=== PATIENT | male | born 1965 | race Caucasian/White ===

== ENCOUNTER 2019-02-02 19:41 | Emergency (ER) | payer MEDICAID ==
[~2019-02-02] VITALS: Ht 182.9 cm; Wt 77.1 kg
[~2019-02-02 19:41] MED LIST: HYDACE5 PO; RXCLIN PO; SULTRIDS PO
[2019-02-02 20:46] LABS: BASOPHILS ABSOLUTE AUTO 0.08 K/mm3 (0.00-0.23); BASOPHILS PERCENT AUTO 1 % (0-2); EOSINOPHILS ABSOLUTE AUTO 0.08 K/mm3 (0.00-0.68); EOSINOPHILS PERCENT AUTO 1 % (0-6); Hematocrit 45.6 % (37.0-53.0); Hemoglobin 15.9 g/dL (13.5-17.5); IMMATURE GRAN ABSOLUTE AUTO 0.02 K/mm3 (0.00-0.10); IMMATURE GRAN PERCENT AUTO 0 % (0-1); LYMPHOCYTES ABSOLUTE AUTO 3.28 K/mm3 (0.84-5.20); LYMPHOCYTES PERCENT AUTO 39 % (21-46); MONOCYTES ABSOLUTE AUTO 0.76 K/mm3 (0.16-1.47); MONOCYTES PERCENT AUTO 9 % (4-13); Mean Corpuscular HGB 32.3 pg (26.0-34.0); Mean Corpuscular HGB Conc 34.9 g/dL (31.5-36.5); Mean Corpuscular Volume 93 fL (80-100); Mean Platelet Volume 10.2 fL (9.1-12.4); NEUTROPHILS ABSOLUTE AUTO 4.17 K/mm3 (1.96-9.15); NEUTROPHILS PERCENT AUTO 50 % (41-73); Platelet Count 277 K/mm3 (150-400); RDW Coefficient Variation 12.5 % (11.7-14.2); RDW Standard Deviation 42.8 fL (35.1-46.3); Red Blood Cell Count 4.92 M/mm3 (4.30-5.90); White Blood Cell Count 8.39 K/mm3 (4.00-11.30)
[2019-02-02 21:06] LABS: Alanine Aminotransfer (ALT/SGP 96 U/L (12-78); Albumin, Blood 4.1 g/dL (3.4-5.0); Albumin/Globulin Ratio 1.2 (0.8-1.8); Alk Phos 95 U/L (50-136); Anion Gap 9 mmol/L (6-16); Aspartate Aminotrans (AST/SGOT 154 U/L (12-37); Bilirubin, Total 0.4 mg/dL (0.1-1.0); Blood Urea Nitrogen 6 mg/dL (8-24); Bun/Creatinine Ratio 9.4 (12.0-20.0); CO2, Blood 24 mmol/L (21-32); Calcium, Blood 8.9 mg/dL (8.5-10.1); Chloride, Blood 103 mmol/L (98-108); Creatinine, Blood 0.64 mg/dL (0.60-1.20); Ethanol (Alcohol), Blood, Med 203 mg/dL; Globulin, Blood 3.5 g/dL (2.2-4.0); Glomerular Filtration Rate >60 (60-); Glucose, Blood 161 mg/dL (70-99); Potassium, Blood 3.9 mmol/L (3.5-5.5); Sodium, Blood 136 mmol/L (136-145); Total Protein, Blood 7.6 g/dL (6.4-8.2); Troponin I <0.015 ng/mL (0.000-0.040)
== END 2019-02-02 22:48 | disposition home or self-care (01) ==
LOC: ER 19:41
PROVIDERS: Emergency Medicine
DX: K70.9 Alcoholic liver disease, unspecified (principal); F10.10 Alcohol abuse, uncomplicated; Y90.7 Blood alcohol level of 200-239 mg/100 ml; R07.9 Chest pain, unspecified; J98.01 Acute bronchospasm; F17.210 Nicotine dependence, cigarettes, uncomplicated; Z88.0 Allergy status to penicillin
CPT/HCPCS: 36415; 71046; 80053; 83690; 84484; 85025; 93005; 93010; 99285-25; G0480

== ENCOUNTER 2024-10-28 11:11 | Day surgery (SDC) | payer OTHER ==
[~2024-10-28] VITALS: Ht 180.3 cm; Wt 76.7 kg
[2024-10-28] VITALS (19 sets, daily range): BP systolic 104–143; BP diastolic 56–96
[~2024-10-28 11:11] MED LIST changes: +Acetaminophen 500 MG Tab PO SCH; +CeFAZolin Sodium 2,000 MG in NS 100 ML IV SCH; +Chlorhexidine Mouth Care 15 ML UDC MT SCH; +IBUP800 PO; +Lactated Ringer's 1,000 ML IV SCH; +OxyCODONE HCL 10 MG TABCR PO SCH; +Ropivacaine 0.5% HCl/Pf 123.125 MG,EPINEPHrine HCL 0.25 MG,Ketorolac Tromethamine 15 MG... INFIL SCH; +SERT25 PO; +Tranexamic Acid 100 ML IV SCH; +Vancomycin HCL 1,000 MG in NS 250 ML IV SCH
[2024-10-28] MEDS ORDERED: albuterol sulfate HF (11:47)
[2024-10-28] MEDS ORDERED: albuterol sulfate HF INH (11:47)
[2024-10-28] MEDS ORDERED: CeFAZolin Sodium 2,000 MG VIAL ONE (12:03)
--- NOTE | 2024-10-28 12:15 | NUR ---
Ambulatory in Day SurgeryPre-Op teaching done. Pt verbalizes understanding. History, Chart, Medications and Allergies reviewed before start of procedure.Patient confirms NPO status and agrees with scheduled surgery. Patient reports completing Chlorhexadine shower X2 prior to admission to hospital.
[2024-10-28] MEDS ORDERED: Promethazine HCl 25 MG Tab PO PRN (12:35)
[2024-10-28] MEDS ORDERED: Bisacodyl 10 MG Supp PR PRN (12:40)
[2024-10-28] MEDS ORDERED: DiphenhydrAMINE HCL 25 MG Cap PO PRN (12:40)
[2024-10-28] MEDS ORDERED: FLU VACC TS2024-25(6MOS UP)/PF 45 MCG/0.5 ML SYRINGE IM PRN (12:40)
[2024-10-28] MEDS ORDERED: Ondansetron HCl 2 MG / ML 2ML Vial IV PRN ×2 (12:45→13:45)
[2024-10-28] MEDS ORDERED: Lactated Ringer's 1,000 ML IV SCH (12:45)
[2024-10-28] MEDS ORDERED: propofoL 100 ML IV ONE (12:45)
[2024-10-28] MEDS ORDERED: Magnesium Hydroxide Conc 10 ML UDC PO PRN (12:45)
[2024-10-28] MEDS ORDERED: Metoclopramide HCl 5MG / ML 2ML Vial IV PRN (12:45)
[2024-10-28] MEDS ORDERED: HYDROmorphone HCl/Pf 1MG SYR IV PRN (12:45)
[2024-10-28] MEDS ORDERED: OxyCODONE HCL 5 MG TAB PO PRN ×2 (12:50)
[2024-10-28] MEDS ORDERED: FentaNYL Citrate 50 MCG/ML 2 ML Injection ONE (13:04)
[2024-10-28] MEDS ORDERED: Midazolam HCl 1MG / ML 2ML Vial ONE (13:04)
[2024-10-28] MEDS ORDERED: Albuterol HFA200 ACT/6.7 GM INH INH PRN (13:05)
[2024-10-28] MEDS ORDERED: Phenylephrine HCl 100 MCG/ML-NS 10MLSYR (1MG/10ML) ONE ×2 (13:24→14:15)
[2024-10-28] MEDS ORDERED: Vancomycin HCl 1000 MG ADDvantage ONE (13:39)
[2024-10-28] MEDS ORDERED: Dexamethasone Sod Phos 10 MG/ML 1ML VIAL ONE (13:41)
[2024-10-28] MEDS ORDERED: propofoL 20 ML IV ONE ×2 (14:50→15:22)
[2024-10-28] MEDS ORDERED: Ondansetron HCl 2 MG / ML 2ML Vial ONE (15:41)
[2024-10-28] MEDS ORDERED: Acetaminophen 500 MG Tab PO SCH (16:00)
--- NOTE | 2024-10-28 17:00 | NUR ---
POST OP ARRIVAL TO SURGICAL UNIT VIA HOSPITAL BED. ALERT & PLEASANT. UNABLE TO MOVE BLE OR WIGGLE TOES. ASSESSMENT CHARTED. DENIES N/V SO SNACKS & DRINKS GIVEN. DAUGHTER AT SIDE.
[2024-10-28] MEDS ORDERED: Ketorolac Tromethamine 15mg Vial IV SCH (18:00)
[2024-10-28] MEDS ORDERED: Docusate Sodium 100 MG Cap PO SCH (21:00)
[2024-10-28] MEDS ORDERED: CeFAZolin Sodium 2,000 MG in NS 100 ML IV SCH (21:15)
[2024-10-28] MEDS ORDERED: NS 250 ML IV PRN (22:05)
[2024-10-29] MEDS ORDERED: Vancomycin HCL 1,000 MG in NS 250 ML IV ONE
[2024-10-29 04:35] VITALS: BP 109/73
[2024-10-29 05:21] LABS: BASOPHILS ABSOLUTE AUTO 0.02 K/mm3 (0.00-0.23); BASOPHILS PERCENT AUTO 0 % (0-2); EOSINOPHILS PERCENT AUTO 0 % (0-6); Hematocrit 34.9 % (37.0-53.0); Hemoglobin 12.1 g/dL (13.5-17.5); IMMATURE GRAN ABSOLUTE AUTO 0.07 K/mm3 (0.00-0.10); IMMATURE GRAN PERCENT AUTO 1 % (0-1); LYMPHOCYTES ABSOLUTE AUTO 0.95 K/mm3 (0.84-5.20); LYMPHOCYTES PERCENT AUTO 9 % (21-46); MONOCYTES ABSOLUTE AUTO 0.98 K/mm3 (0.16-1.47); MONOCYTES PERCENT AUTO 9 % (4-13); Mean Corpuscular HGB 33.1 pg (26.0-34.0); Mean Corpuscular HGB Conc 34.7 g/dL (31.5-36.5); Mean Corpuscular Volume 95 fL (80-100); Mean Platelet Volume 10.5 fL (9.1-12.4); NEUTROPHILS ABSOLUTE AUTO 8.54 K/mm3 (1.96-9.15); NEUTROPHILS PERCENT AUTO 81 % (41-73); Platelet Count 194 K/mm3 (150-400); RDW Coefficient Variation 12.2 % (11.7-14.2); RDW Standard Deviation 42.7 fL (35.1-46.3); Red Blood Cell Count 3.66 M/mm3 (4.30-5.90); White Blood Cell Count 10.56 K/mm3 (4.00-11.30)
[2024-10-29 05:42] LABS: Bun/Creatinine Ratio 17.4 (12.0-20.0); Calcium, Blood 8.5 mg/dL (8.5-10.1); Creatinine, Blood 0.69 mg/dL (0.60-1.20); Potassium, Blood 4.5 mmol/L (3.5-5.5)
--- NOTE | 2024-10-29 06:18 | NUR ---
SHIFT SUMMARY POD 1 S/P LEFT TKA. DRESSING AND NANCY WRAP CDI. POLAR PACK IN PLACE ANALI T/O SHIFT. PAIN MANAGED PER EMAR. ABX INFUSED PER ORDERS. ANALI PO INTAKE AND VOIDING. IV PATENT AND SL. AMBULATING IN HALLWAY WITH FWW, GB, SBA. PLAN TO WORK WITH THERAPY AND DC HOME. WILL GIVE REPORT TO ONCOMING RN.
[2024-10-29 07:26] VITALS: BP 114/70
[2024-10-29] MEDS ORDERED: ASPI81CH PO (08:45)
[2024-10-29] MEDS ORDERED: OXYC5 PO (08:46)
[2024-10-29] MEDS ORDERED: SULTRIDS PO (08:47)
[2024-10-29] MEDS ORDERED: Aspirin 81 MG Chew PO SCH (09:00)
[2024-10-29] MEDS ORDERED: Trimethoprim/Sulfamethoxazole DS Tab PO SCH (09:00)
[2024-10-29] MEDS ORDERED: Sertraline HCl 50 MG Tab PO SCH (09:00)
--- NOTE | 2024-10-29 10:10 | NUR ---
DISCHARGE PT HAS WORKED w/ THERAPY. PAIN WELL CONTROLLED. EATING, DRINKING, & VOIDING WELL. RONAL & TARI SEVERINO SENT w/ PT. ESCORTED OUT VIA W/C.
== END 2024-10-29 10:05 | disposition home or self-care (01) ==
LOC: ORSCMMR 11:11 → ORD 14:00 → SURS 16:52 → ORSCMMR 10-29 10:05
PROVIDERS: Orthopaedic Surgery
PROC: 0SRD0J9 Replacement of Left Knee Joint with Synthetic Substitute, Cemented, Open Approach (ICD-10-PCS; principal; 2024-10-28 14:00)
PROC: 0QP104Z Removal of Internal Fixation Device from Sacrum, Open Approach (ICD-10-PCS; principal; 2024-10-28 14:00)
DX: M17.12 Unilateral primary osteoarthritis, left knee (principal); Z87.891 Personal history of nicotine dependence; J45.909 Unspecified asthma, uncomplicated; Z79.899 Other long term (current) drug therapy
CPT/HCPCS: 36415; 73560-LT; 80048; 83735; 85025; 94760; 97110; 97116; 97162; A9270; C1713; C1776; J0171; J0690; J0735; J1100; J1885; J2250; J2371; J2405; J2704; J2795; J3010; J3370; J7050; J7120

== ENCOUNTER 2025-05-06 01:02 | Emergency (ER) | payer OTHER ==
[~2025-05-06] VITALS: Ht 180.3 cm; Wt 72.6 kg
[~2025-05-06 01:02] MED LIST changes: +ASPI81CH PO; -Acetaminophen 500 MG Tab PO SCH; -CeFAZolin Sodium 2,000 MG in NS 100 ML IV SCH; -Chlorhexidine Mouth Care 15 ML UDC MT SCH; -Lactated Ringer's 1,000 ML IV SCH; +OXYC5 PO; -OxyCODONE HCL 10 MG TABCR PO SCH; -Ropivacaine 0.5% HCl/Pf 123.125 MG,EPINEPHrine HCL 0.25 MG,Ketorolac Tromethamine 15 MG... INFIL SCH; -Tranexamic Acid 100 ML IV SCH; -Vancomycin HCL 1,000 MG in NS 250 ML IV SCH; +albuterol sulfate HF; +albuterol sulfate HF INH
[2025-05-06 01:38] VITALS: BP 107/74
[2025-05-06] MEDS ORDERED: CEPH500 PO (04:14)
== END 2025-05-06 04:30 | disposition home or self-care (01) ==
LOC: ER 01:02
DX: S31.010A Laceration without foreign body of lower back and pelvis without penetration into retroperitoneum, initial encounter (principal); W45.8XXA Other foreign body or object entering through skin, initial encounter; F17.210 Nicotine dependence, cigarettes, uncomplicated; Z79.82 Long term (current) use of aspirin; Z79.899 Other long term (current) drug therapy; Z88.0 Allergy status to penicillin; Z23 Encounter for immunization
CPT/HCPCS: 12002; 99282-25

== ENCOUNTER 2025-06-24 19:21 | Emergency (ER) | payer OTHER ==
[~2025-06-24] VITALS: Ht 180.3 cm; Wt 75.8 kg
[~2025-06-24 19:21] MED LIST changes: +CEPH500 PO
[2025-06-24 19:30] VITALS: BP 147/95
[2025-06-24] MEDS ORDERED: HYDROmorphone HCl/Pf 1MG SYR IV ONE ×2 (19:35→20:20)
[2025-06-24 20:06] LABS: BASOPHILS ABSOLUTE AUTO 0.11 K/mm3 (0.00-0.23); BASOPHILS PERCENT AUTO 1 % (0-2); EOSINOPHILS ABSOLUTE AUTO 0.01 K/mm3 (0.00-0.68); EOSINOPHILS PERCENT AUTO 0 % (0-6); Hematocrit 42.3 % (37.0-53.0); Hemoglobin 14.4 g/dL (13.5-17.5); IMMATURE GRAN ABSOLUTE AUTO 0.05 K/mm3 (0.00-0.10); IMMATURE GRAN PERCENT AUTO 0 % (0-1); LYMPHOCYTES ABSOLUTE AUTO 2.24 K/mm3 (0.84-5.20); LYMPHOCYTES PERCENT AUTO 20 % (21-46); MONOCYTES ABSOLUTE AUTO 0.73 K/mm3 (0.16-1.47); MONOCYTES PERCENT AUTO 6 % (4-13); Mean Corpuscular HGB Conc 34.0 g/dL (31.5-36.5); Mean Corpuscular Volume 93 fL (80-100); NEUTROPHILS ABSOLUTE AUTO 8.18 K/mm3 (1.96-9.15); NEUTROPHILS PERCENT AUTO 72 % (41-73); NRBC ABSOLUTE 0.00 K/mm3 (0.00-0.02); NRBC Auto 0.0 /100 WBC (0.0-0.2); Platelet Count 388 K/mm3 (150-400); RDW Coefficient Variation 12.3 % (11.7-14.2); RDW Standard Deviation 42.3 fL (35.1-46.3)
[2025-06-24] MEDS ORDERED: Propofol 10mg/ml 20 ml Vial (Procedural) IV SCH (20:50)
[2025-06-24] MEDS ORDERED: Ketamine HCl 100 MG / ML 5ML Vial IV ONE (20:50)
[2025-06-24 20:54] LABS: Alanine Aminotransfer (ALT/SGP 23.0 U/L (12-78); Albumin, Blood 3.7 g/dL (3.4-5.0); Albumin/Globulin Ratio 0.8 (0.8-1.8); Anion Gap 12.0 mmol/L (3-11); Aspartate Aminotrans (AST/SGOT 27.0 U/L (12-37); Bilirubin, Total 0.3 mg/dL (0.1-1.0); Blood Urea Nitrogen 8.0 mg/dL (8-24); CO2, Blood 26.0 mmol/L (21-32); Calcium, Blood 9.3 mg/dL (8.5-10.1); Chloride, Blood 102.0 mmol/L (98-108); Creatinine, Blood 0.57 mg/dL (0.60-1.20); Globulin, Blood 4.4 g/dL (2.2-4.0); Glucose, Blood 101.0 mg/dL (70-99); Potassium, Blood 3.7 mmol/L (3.5-5.5); Sodium, Blood 136.0 mmol/L (136-145); Total Protein, Blood 8.1 g/dL (6.4-8.2)
[2025-06-24] MEDS ORDERED: NS 1,000 ML IV SCH (21:05)
[2025-06-24] MEDS ORDERED: HYDR1TAB94 PO (22:04)
== END 2025-06-24 23:27 | disposition home or self-care (01) ==
LOC: ER 19:21
PROVIDERS: Student in an Organized Health Care Education/Training Program
DX: S42.252A Displaced fracture of greater tuberosity of left humerus, initial encounter for closed fracture (principal); S43.005A Unspecified dislocation of left shoulder joint, initial encounter; W18.30XA Fall on same level, unspecified, initial encounter; Z88.0 Allergy status to penicillin; Z79.899 Other long term (current) drug therapy; F17.210 Nicotine dependence, cigarettes, uncomplicated
CPT/HCPCS: 23605; 73020; 73030; 80053; 85025; 96374-59; 96376-59; 99152; 99284-25; J1171; J2704; J7030